=== PATIENT | male | born 1985 | race Caucasian/White ===

== ENCOUNTER 2017-10-21 21:08 | Emergency (ER) | payer SELFPAY ==
[2017-10-21] MEDS ORDERED: Lidocaine 1% 20 ML MDV ONE (21:20)
[2017-10-21] MEDS ORDERED: Lidocaine 4% Cream 5 GM TUBE w/ Tegaderm ONE (21:21)
[2017-10-21] MEDS ORDERED: Adacel (T-DAP) 0.5 ML VIAL ONE (21:31)
[2017-10-21] MEDS ORDERED: Bacitracin Zinc 1 Packet ONE (22:07)
[2017-10-21] MEDS ORDERED: Cephalexin 250 MG CAP ONE (22:11)
[2017-10-21] MEDS ORDERED: Ibuprofen 800 MG TAB ONE (22:11)
== END 2017-10-21 22:18 | disposition home or self-care (01) ==
LOC: NAV ERS 21:08
DX: S61.411A Laceration without foreign body of right hand, initial encounter (principal); F41.9 Anxiety disorder, unspecified; Z79.899 Other long term (current) drug therapy; W25.XXXA Contact with sharp glass, initial encounter
CPT/HCPCS: 12002; 90471; 90715; J2001

== ENCOUNTER 2020-01-28 08:27 | Emergency (ER) | payer SELFPAY ==
[2020-01-28] MEDS ORDERED: Iopamidol 370 76% 100 ML VIAL ONE (09:00)
[2020-01-28] MEDS ORDERED: Mag-Al Plus 1200 MG/1200 MG/120 MG/30 ML UDCUP ONE (09:17)
[2020-01-28] MEDS ORDERED: Pantoprazole 40 MG VIAL ONE (09:17)
[2020-01-28] MEDS ORDERED: Lidocaine Viscous Sol 2% 15 ml UD Cup ONE (09:17)
[2020-01-28 09:38] LABS: ALT (SGPT) 26 U/L (8-55); AST (SGOT) 20 U/L (5-34); Albumin 4.6 g/dL (3.5-5.0); Alkaline Phosphatase 63 U/L (40-110); Anion Gap 13 mmol/L (10-20); BUN (Urea Nitrogen) 10 mg/dL (8.9-20.6); Bilirubin, Total 1.4 mg/dL (0.2-1.2); Calc. Creatinine Clearance 0 mL/min (70-130); Calcium 9.5 mg/dL (7.8-10.44); Carbon Dioxide 27 mmol/L (22-29); Chloride 102 mmol/L (98-107); Estimated GFR-MDRD Greater than 90; Globulin 2.3 g/dL (2.4-3.5); Glucose 103 mg/dL (70-105); Lipase 17 U/L (8-78); Potassium 3.7 mmol/L (3.5-5.1); Protein, Total 6.9 g/dL (6.0-8.3); Sodium 138 mmol/L (136-145)
[2020-01-28 09:52] LABS: Hemoglobin 15.1 g/dL (14.0-18.0); MDiff Complete? YES; Mean Corpuscular HGB CONC 33.2 g/dL (32.0-36.0); Mean Corpuscular Hemoglobin 29.7 pg (27.0-31.0); Mean Corpuscular Volume 89.6 fL (78.0-98.0); Mean Platelet Volume 7.8 fL (7.4-10.4); Platelet Count 253 thou/uL (130-400); RBC Distribution Width 11.2 % (11.5-14.5); Red Blood Cell (RBC) Count 5.07 mill/uL (4.70-6.10); White Blood Cell (WBC) Count 21.7 thou/uL (4.8-10.8)
[2020-01-28 09:53] LABS: Lymphocytes 12 % (21-51); Monocytes 6 % (0-10); Neutrophil 82 % (42-75); Platelet Morphology Comment Appears Adequate
--- NOTE | 2020-01-28 11:08 | CT ---
CT of theabdomen and pelvis: 01/28/2020 COMPARISON:None available HISTORY:Recurrent abdominal pain TECHNIQUE: Serial axial CT imaging at5 mm intervals from thelung bases through the pubic symphysis wi th intravenous contrast. Coronal and sagittal reformatted imaging obtained Findings:Imaged lung bases are unremarkable. No free intraperitoneal air. Liver, gallbladder, spleen, pancreas, adrenal glands, and kidneys appear unremarkable. The sigmoid colon and the descending colon is decompressed and thus difficult to assess. There is sub tle linear density and hyperemia adjacent to the areas of thickened sigmoid colon and descending colon. Similar findings are seen within the right. Findings raise a question of nonspecific colitis, possibly on the basis of inflammatory bowel disease, which could include Crohn's disease and ulcerative colitis. In addition, there is a focal area of fat stranding adjacent to the cecum and the periappendiceal reg ion. The appendix is mildly distended, measuring in the 7-8 mm range. Findings may be the result of acute appendicitis or secondary inflammation of the appendix associated with inflammatory bowel disea se. Clinical correlation and surgical consultation is suggested. No evidence for abscess within the abdomen/pelvis. The visualized vascular structures of the abdomen/pelvis appear patent. No lymphadenopathy is seen within the abdomen or pelvis. No evidence for bowel obstruction Osseous structures demonstrate no acute findings. IMPRESSION: There is inflammatory change adjacent to a mildly distended appendix. This could represen t acute appendicitis in proper clinical setting. In addition there is hyperemia and probable wall thickening involving the colon in the region of the cecum as well as in the descending colon and sigm oid regions. Thus, all findings may be on the basis of nonspecific colitis/inflammatory bowel disease. Surgical consultation may be beneficial. Results were called to Dr. Hodges at 11:00 AM 01/28/2020
[2020-01-28] MEDS ORDERED: Sodium Chloride 0.9% 100 ML ONE (11:37)
[2020-01-28] MEDS ORDERED: CEFAZOLIN 1 GM VIAL ONE (11:37)
== END 2020-01-28 12:24 | disposition short-term general hospital (02) ==
LOC: NAV ERS 08:27
DX: R10.13 Epigastric pain (principal); R10.33 Periumbilical pain; F41.9 Anxiety disorder, unspecified
CPT/HCPCS: 74177; 80053; 83690; 85025; 96365; 96375; C9113; J0690; Q9967

== ENCOUNTER 2021-12-15 09:28 | Emergency (ER) | payer SELFPAY ==
[2021-12-15] MEDS ORDERED: Lidocaine 1% 20 ML MDV ONE (10:09)
[2021-12-15] MEDS ORDERED: Bacitracin 1 PK ONE (11:07)
== END 2021-12-15 11:10 | disposition home or self-care (01) ==
LOC: NAV ERS 09:28
DX: S61.212A Laceration without foreign body of right middle finger without damage to nail, initial encounter (principal); S61.214A Laceration without foreign body of right ring finger without damage to nail, initial encounter; W26.8XXA Contact with other sharp object(s), not elsewhere classified, initial encounter
CPT/HCPCS: 12002